=== PATIENT | male | born 2000 | race Caucasian/White ===

== ENCOUNTER 2020-12-24 06:25 | Emergency (ER) | payer MEDICAID ==
--- NOTE | 2020-12-24 08:27 | EDM.PDOC ---
ED [facility] GENERAL MEDICAL PROBLEM - General Chief Complaint: General Stated Complaint: VOMITING Time Seen by Provider: 12/24/20 07:10 Source of Information: Reports: Patient, Family History Limitations: Reports: No Limitations - History of Present Illness INITIAL COMMENTS - FREE TEXT/NARRATIVE: This patient presents to the emergency department for evaluation of vomiting. He states he has had 16 episodes of vomiting since last evening. He denies any abdominal pain with this. He does have diarrhea. He states he does not use marijuana. He has not tried any clear liquids in between vomiting episodes. He last voided last evening and states he had a normal bowel movement yesterday. He denies headache, chest pain, dysuria. He states he does need a work note. - Related Data Allergies Allergy/AdvReac Type Severity Reaction Status Date / Time bee venom protein (honey bee) Allergy Edema Verified 12/24/20 06:53 Home Meds: Home Meds NK [No Known Home Meds] 12/24/20 [History] Past Medical History - Past Health History Medical/Surgical History: Denies Medical/Surgical History Social & Family History - Recreational Drug Use Recreational Drug Use: No ED ROS GENERAL - Review of Systems Review Of Systems: Comprehensive ROS is negative, except as noted in HPI. ED EXAM, GENERAL - Physical Exam Exam: See Below Exam Limited By: No Limitations General Appearance: Alert, No Apparent Distress, Other (Lips dry, mucous membranes moist.) Eye Exam: Bilateral Eye: PERRL Ears: Normal External Exam Nose: Normal Inspection Head: Atraumatic, Normocephalic Neck: Normal Inspection, Non-Tender, Full Range of Motion Respiratory/Chest: No Respiratory Distress, Lungs Clear, Normal Breath Sounds, No Accessory Muscle Use Cardiovascular: Regular Rate, Rhythm GI/Abdominal: Soft, Non-Tender, No Distention, Abnormal Bowel Sounds (Hypoactive in all 4 quadrants.) Extremities: Normal Inspection, Normal Range of Motion Neurological: Alert, Oriented Psychiatric: Normal Affect Skin Exam: Warm, Dry, Intact Course - Vital Signs Last Recorded V/S: Last Vital Signs Temp 36.3 C 12/24/20 07:08 Pulse 70 12/24/20 07:12 Resp 18 12/24/20 07:12 BP 127/83 12/24/20 07:12 Pulse Ox 95 12/24/20 07:08 - Re-Assessments/Exams Free Text/Narrative Re-Assessment/Exam: This patient presents for evaluation of nausea and vomiting. He denies abdominal pain but does have some diarrhea; he has a nonfocal abdominal exam. I considered a broad differential diagnosis for this patient including viral gastroenteritis, bacterial infection of the large intestine such as Salmonella, Shigella, Campylobacter, and E. coli, bowel obstruction, intra-abdominal infection such as colitis, cholecystitis, UTI, pyelonephritis, or appendicitis. I also considered cannabinoid hyperemesis syndrome. There are no signs of worrisome intra-abdominal pathologies detected during the visit today. This patient has a completely benign abdominal exam without rebound, guarding, or marked tenderness to palpation. He was offered IV fluids and Zofran but refused and stated he needed a work note. He was instructed to return home with supportive care to include the introduction of clear liquids in very small amounts frequently throughout the day. He was instructed to return to the ER over the weekend if he had further problems or had any changes in his symptoms. 12/24/20 08:25 Departure - Departure Time of Disposition: 07:30 Disposition: Home, Self-Care 01 Condition: Good Clinical Impression: Gastroenteritis - Discharge Information Instructions: Viral Gastroenteritis, Adult, [id number] Forms: ED Department Discharge Care Plan Goals: off work till after 12/26/20. small sips of fluids. Return as needed. Sepsis Event Note (ED) - Evaluation Sepsis Screening Result: No Definite Risk - Focused Exam Vital Signs: Vital Signs Temp Pulse Resp BP Pulse Ox 12/24/20 07:12 70 18 127/83 12/24/20 07:08 36.3 C 73 18 110/62 95
== END 2020-12-24 07:25 | disposition home or self-care (01) ==
LOC: LB.ED 06:25
DX: K52.9 Noninfective gastroenteritis and colitis, unspecified (principal); Z91.030 Bee allergy status
CPT/HCPCS: 99283

== ENCOUNTER 2021-03-08 15:30 | Emergency (ER) | payer MEDICAID | END 2021-03-08 16:14 | disposition home or self-care (01) | LOC: LB.ED 15:30 | DX: H10.022 Other mucopurulent conjunctivitis, left eye (principal); Z91.030 Bee allergy status | CPT/HCPCS: 99282 ==

== ENCOUNTER 2021-03-10 19:42 | Emergency (ER) | payer MEDICAID ==
[~2021-03-10 19:42] MED LIST: Ciprofloxacin 0.3% Ophth Soln 2.5 ML Bottle ONE; prednisoLONE Acetate 1% Ophth Susp 5 ML Bottle ONE
== END 2021-03-10 20:00 | disposition home or self-care (01) ==
LOC: LB.ED 19:42
DX: H20.9 Unspecified iridocyclitis (principal); L08.9 Local infection of the skin and subcutaneous tissue, unspecified; Z91.030 Bee allergy status
CPT/HCPCS: 99282; A9270-GY